=== PATIENT | male | born 1985 | race American Indian/Alaskan Native ===

== ENCOUNTER 2017-11-06 07:55 | Emergency (ER) | payer BC, OTHER ==
[~2017-11-06] VITALS: Ht 188 cm; Wt 152.9 kg
--- OUTSIDE RECORDS SUMMARY | ~2017-11-06 | XMS | Clinical Summary ---
Demographics + + + | Address | [address] | | | [place] [address] | + + + | Home Phone | | + + + | Preferred Language | Unknown | + + + | Marital Status | Single | + + + | Baptism Affiliation | CAT | + + + | Race | or | + + + | Ethnic Group | Not or | + + + Author + + + | Author | [facility] | + + + | Organization | [facility] | + + + | Address | Unknown | + + + | Phone | Unavailable | + + + Support + + +---------+ + | Name | Relationship | Address | Phone | + + +---------+ + | Danilo Harshilpee | ECON | Unknown | | + + +---------+ + | Bethany Thompson | ECON | Unknown | | + + +---------+ + Care Team Providers + +------+ + | Care Commercial Escrow Assistant Name | Role | Phone | + +------+ + | Eric Goodwin | PP | | + +------+ + Source Comments VICKIE is fully live on both EpicCare Ambulatory and EpicCare InPatient.[facility] Allergies + + + + + + | Active Allergy | Reactions | Severity | Noted | Comments | | | | | Date | | + + + + + + | Sulfamethoxazole-Tri | | | 03/10/20 | | | methoprim | | | 08 | | + + + + + + Current Medications + + +---------+---------+------+------+-------+ | Prescription | Sig. | Disp. | Refills | Star | End | Statu | | | | | | t | Date | s | | | | | | Date | | | + + +---------+---------+------+------+-------+ | acetaminophen 325 | Take 325 mg by mouth | | | | | Activ | | mg oral tablet | every four hours as | | | | | e | | | needed. | | | | | | + + +---------+---------+------+------+-------+ | ibuprofen 200 mg | Take 200 mg by mouth | | | | | Activ | | oral tablet | every six hours as | | | | | e | | | needed. | | | | | | + + +---------+---------+------+------+-------+ | docusate sodium | Take 1 capsule by | 60 | 1 | 03/1 | | Activ | | 100 mg oral capsule | mouth two times | capsule | | 2/20 | | e | | | daily. | | | 15 | | | + + +---------+---------+------+------+-------+ | senna 8.6 mg oral | Take 2 tablets by | 30 | 1 | 03/1 | | Activ | | tablet | mouth once daily as | tablet | | 2/20 | | e | | | needed. | | | 15 | | | + + +---------+---------+------+------+-------+ | | Take 1 to 2 tablets | 180 | 0 | 03/1 | | Activ | | HYDROcodone-acetamin | by mouth every four | tablet | | 2/20 | | e | | ophen 7.5-325 mg | hours as needed. Not | | | 15 | | | | oral tablet | to exceed 3250 mg | | | | | | | | of acetaminophen | | | | | | | | from all products | | | | | | | | per 24 hour period. | | | | | | + + +---------+---------+------+------+-------+ Active Problems + + + | Problem | Noted Date | + + + | Chronic low back pain | 09/13/2014 | + + + | Pancreatitis | 09/13/2014 | + + + | Constipation | 09/13/2014 | + + + | Choledocholithiasis | 09/12/2014 | + + + | Closed dislocation of mandible | 03/11/2008 | + + + Family History + + +------+ + | Medical History | Relation | Name | Comments | + + +------+ + | Colon Cancer | Father | | | + + +------+ + + +------+--------+ + | Relation | Name | Status | Comments | + +------+--------+ + | Father | | | | + +------+--------+ + Social History + +-------+ +--------+------+ | Tobacco Use | Types | Packs/Day | Years | Date | | | | | Used | | + +-------+ +--------+------+ | Light Tobacco Smoker | | | | | + +-------+ +--------+------+ + +------+---+---+ | Smokeless Tobacco: | Chew | | | | Current User | | | | + +------+---+---+ + + + | Sex Assigned at | Date Recorded | | | | + + + | Not on file | | + + + Last Filed Vital Signs + + + + | Vital Sign | Reading | Time Taken | + + + + | Blood Pressure | 144/78 | 09/15/2014 7:47 AM PDT | + + + + | Pulse | 76 | 09/15/2014 7:47 AM PDT | + + + + | Temperature | 36.7 C (98.1 F) | 09/15/2014 7:47 AM PDT | + + + + | Respiratory Rate | 18 | 09/15/2014 7:47 AM PDT | + + + + | Oxygen Saturation | 97% | 09/15/2014 7:47 AM PDT | + + + + | Inhaled Oxygen | - | - | | Concentration | | | + + + + | Weight | 140 kg (308 lb 9.6 | 09/12/2014 11:19 PM PDT | | | oz) | | + + + + | Height | 188 cm (6' 2") | 09/12/2014 11:19 PM PDT | + + + + | Body Mass Index | 39.62 | 09/12/2014 11:19 PM PDT | + + + + Plan of Treatment + + + + + | Health Maintenance | Due Date | Last Done | Comments | + + + + + | INFLUENZA VACCINE | | | | | (FLU SHOT) | 8 | | | + + + + + Results Not on filefrom Last 3 Months
--- OUTSIDE RECORDS SUMMARY | ~2017-11-06 | XMS | Clinical Summary ---
Demographics + + + | Address | [address] | | | [place] [address] | + + + | Home Phone | | + + + | Preferred Language | Unknown | + + + | Marital Status | Single | + + + | Scientology Affiliation | Unknown | + + + | Race | Unknown | + + + | Ethnic Group | Unknown | + + + Author + + + | Author | [facility] | | | and [place] | + + + | Organization | [facility] | | | and [place] | + + + | Address | Unknown | + + + | Phone | Unavailable | + + + Support + + +---------+ + | Name | Relationship | Address | Phone | + + +---------+ + | Maria Fernanda Alejandre | ECON | Unknown | | + + +---------+ + Care Team Providers + +------+ + | Care Assembly Hand Name | Role | Phone | + +------+ + | Eric Goodwin PA-C | PP | | + +------+ + Allergies + + + + + + | Active Allergy | Reactions | Severity | Noted | Comments | | | | | Date | | + + + + + + | Sulfamethoxazole | | | 01/27/20 | | | W/Trimethoprim | | | 14 | | | (Co-Trimoxazole) | | | | | + + + + + + Current Medications + + +--------+---------+------+------+-------+ | Prescription | Sig. | Disp. | Refills | Star | End | Statu | | | | | | t | Date | s | | | | | | Date | | | + + +--------+---------+------+------+-------+ | | Take 1 tablet by | | | | | Activ | | HYDROcodone-acetamin | mouth every 6 hours | | | | | e | | ophen (NORCO) | as needed. | | | | | | | 7.5-325 mg per | | | | | | | | tablet | | | | | | | + + +--------+---------+------+------+-------+ | ibuprofen | Take 600 mg by mouth | | | | | Activ | | (ADVIL,MOTRIN) 600 | every 6 hours as | | | | | e | | MG tablet | needed. | | | | | | + + +--------+---------+------+------+-------+ | meloxicam (MOBIC) | Take 1 tablet by | 30 | 2 | 01/2 | | Activ | | 15 mg tablet | mouth Daily as | tablet | | 08/26 | | e | | | needed for Pain. | | | 15 | | | + + +--------+---------+------+------+-------+ Active Problems + + + | Problem | Noted Date | + + + | Obesity | 01/26/2014 | + + + | Chronic low back pain | 01/26/2014 | + + + | DDD (degenerative disc disease), lumbar-Worst at L4-L5,L5-S1 with | 01/26/2014 | | annular tears and disc dessication | | + + + | Facet arthritis of lumbar region (HCC) | 01/26/2014 | + + + Family History + + +------+ + | Medical History | Relation | Name | Comments | + + +------+ + | Cancer | Father | | | + + +------+ + + +------+--------+ + | Relation | Name | Status | Comments | + +------+--------+ + | Father | | | | + +------+--------+ + Social History + +-------+ +--------+------+ | Tobacco Use | Types | Packs/Day | Years | Date | | | | | Used | | + +-------+ +--------+------+ | Former Smoker | | | | | + +-------+ +--------+------+ + + +---------+ + | Alcohol Use | Drinks/We | oz/Week | Comments | | | ek | | | + + +---------+ + | Yes | | | Rare | + + +---------+ + + + + | Sex Assigned at | Date Recorded | | | | + + + | Not on file | | + + + Last Filed Vital Signs + + + + | Vital Sign | Reading | Time Taken | + + + + | Blood Pressure | 147/91 | 08/11/2014 1400 PST | + + + + | Pulse | 85 | 08/11/2014 1400 PST | + + + + | Temperature | - | - | + + + + | Respiratory Rate | - | - | + + + + | Oxygen Saturation | - | - | + + + + | Inhaled Oxygen | - | - | | Concentration | | | + + + + | Weight | 145.2 kg (320 lb) | 07/28/20141344 PST | + + + + | Height | 185.4 cm (6' 1") | 07/28/20141344 PST | + + + + | Body Mass Index | 42.22 | 07/28/20141344 PST | + + + + Plan of Treatment + + + + + | Health Maintenance | Due Date | Last Done | Comments | + + + + + | Vaccine: | | | | | Dtap/Tdap/Td (1 - | 6 | | | | Tdap) | | | | + + + + + | Vaccine: Influenza | | | | | (Season Ended) | 8 | | | + + + + + Results Not on filefrom Last 3 Months Insurance + +--------+ +--------+-------+---------+ | Payer | Benefi | Subscriber | Type | Phone | Address | | | t Plan | ID | | | | | | / | | | | | | | Group | | | | | + +--------+ +--------+-------+---------+ | [facility] | [employer] | xxxxxxxxx | Indemn | | | | SERVICE | YELLOW | | ity | | | | | [place]WK | | | | | + +--------+ +--------+-------+---------+ + +--------+ +--------+ + + | Guarantor Name | Accoun | Relation to | Date | Phone | Billing Address | | | t Type | Patient | of | | | | | | | | | | + +--------+ +--------+ + + | MEDINA THOMPSON | Person | Self [birth year] Home: | [id number] | | | [place] | | 1985 | [phone] | [place] [address] | | | [place] | | | [phone] | | + +--------+ +--------+ + +
--- OUTSIDE RECORDS SUMMARY | ~2017-11-06 | XMS | Clinical Summary ---
Demographics + + + | Address | [address] | | | [place] [address] | + + + | Home Phone | | + + + | Preferred Language | Unknown | + + + | Marital Status | Single | + + + | Catholic Affiliation | Unknown | + + + | Race | Unknown | + + + | Ethnic Group | Unknown | + + + Author + + + | Author | [facility] | | | and [place] | + + + | Organization | [facility] | | | and [...] Team Providers + +------+ + | Care Personal Shopper Name | Role | Phone | + [...] | | | + +--------+ +--------+-------+---------+ | [facility] | [employer] | [phone] | Indemn [...] | Self [birth year] | Home: | [id number] | | | [place] | | 1985 | [phone] | [place] [address] | | | [place] | | | [phone] | | + +--------+ +--------+ + +
--- OUTSIDE RECORDS SUMMARY | ~2017-11-06 | XMS | Clinical Summary ---
Demographics + + + | Address | [address] | | | [place] [address] | + + + | Home Phone | | + + + | Preferred Language | Unknown | + + + | Marital Status | Single | + + + | Church Affiliation | CAT | + + + [...] Team Providers + +------+ + | Care Assembler Crimper Name | Role | Phone | + +------+ + | Eric Goodwin | PP | | + +------+ + Source Comments VICKIE is fully live on both EpicCare Ambulatory and EpicCare InPatient.[facility] + + + + + + [...]
[~2017-11-06 07:55] MED LIST: ASPIRIN EC81 MG PO; COMBIVIR TABLET1 TAB PO; IBUPROFEN600 MG PO; NORCO 5-325 TA1 EACH PO; PROMETHAZINE HC25 MG PR; ZOFRAN ODT4 MG PO
[2017-11-06] MEDS ORDERED: ALLEGRA-D 12 H1 EACH PO (08:06)
[2017-11-06] MEDS ORDERED: PANTOPRAZOLE SO40 MG PO (10:04)
[2017-11-06] MEDS ORDERED: ZOFRAN ODT4 MG PO (10:04)
== END 2017-11-06 10:26 | disposition home or self-care (01) ==
LOC: ED 07:55
DX: S00.33XA Contusion of nose, initial encounter (principal); K29.20 Alcoholic gastritis without bleeding; F17.200 Nicotine dependence, unspecified, uncomplicated; Z88.2 Allergy status to sulfonamides; Z79.899 Other long term (current) drug therapy; X58.XXXA Exposure to other specified factors, initial encounter
CPT/HCPCS: 70450; 70486; 71045; 80053; 83690; 85025; 96361; 96374; 96375; 99284; G0480; J2270; J2405; J7030

== ENCOUNTER 2024-12-14 15:23 | Emergency (ER) | payer BC, OTHER ==
[~2024-12-14] VITALS: Ht 182.9 cm; Wt 184.0 kg
[~2024-12-14 15:23] MED LIST changes: +ALLEGRA-D 12 H1 EACH PO; +AMOX TR-K CLV1 EAC1 PO; +LANTUS SOL100 UNIT/1 SUB-Q; +MONODOX100 MG PO; +NYSTATIN15 GM TOP; +OXYCODONE HCL5 MG PO; +PANTOPRAZOLE SO40 MG PO
[2024-12-14] MEDS ORDERED: HYDROCODONE/APAP 10/325 1 TAB PO ONE (19:15)
[2024-12-14 19:34] VITALS: BP 135/94
== END 2024-12-14 19:34 | disposition home or self-care (01) ==
LOC: ED 15:23
DX: S93.402A Sprain of unspecified ligament of left ankle, initial encounter (principal); S83.92XA Sprain of unspecified site of left knee, initial encounter; X50.1XXA Overexertion from prolonged static or awkward postures, initial encounter; E11.9 Type 2 diabetes mellitus without complications; F17.200 Nicotine dependence, unspecified, uncomplicated; Z88.2 Allergy status to sulfonamides; Z79.4 Long term (current) use of insulin; Z79.899 Other long term (current) drug therapy
CPT/HCPCS: 29515; 73560; 73610; 99283-25; A9270

== ENCOUNTER 2025-06-11 15:40 | Emergency (ER) | payer BC, OTHER ==
[~2025-06-11] VITALS: Ht 182.9 cm; Wt 160.0 kg
[2025-06-11] MEDS ORDERED: DIPHTH,PERTUSS(ACELL),TET VAC 0.5 ML SYRINGE IM ONE (16:15)
[2025-06-11 18:53] VITALS: BP 126/85
== END 2025-06-11 18:54 | disposition home or self-care (01) ==
LOC: ED 15:40
DX: I83.892 Varicose veins of left lower extremity with other complications (principal); E11.9 Type 2 diabetes mellitus without complications; F17.200 Nicotine dependence, unspecified, uncomplicated; Z88.2 Allergy status to sulfonamides; Z79.4 Long term (current) use of insulin
CPT/HCPCS: 90471; 90715; 99283-25